=== PATIENT | female | born 1980 | race Caucasian/White ===

== ENCOUNTER 2019-03-03 13:04 | Emergency (ER) | payer SELFPAY ==
[2019-03-03] MEDS ORDERED: ONDANSETRON HCL INJ/PF 4 MG/2 ML SDV IV ONE (13:59)
[2019-03-03] MEDS ORDERED: DICYCLOMINE HCL 20 MG TABLET PO ONE (13:59)
[2019-03-03] MEDS ORDERED: KETOROLAC TROMETHAMINE INJ/PF 30 MG/1 ML SDV IV ONE (13:59)
--- NOTE | 2019-03-03 14:01 | ER Document Report ---
ED Medical Screen (RME) - General Chief Complaint: Abdominal Pain Stated Complaint: ABDOMINAL PAIN,DIARRHEA Time Seen by Provider: 03/03/19 13:40 Primary Care Provider: KINZA MASON MD [Primary Care Provider] - Follow up as needed TRAVEL OUTSIDE OF THE [place] IN LAST 30 DAYS: No - HPI Notes: 03/03/19 14:00 Patient is a 38-year-old female with a history of IBS who presents complaining of left mid abdominal pain, nausea without vomiting, diarrhea over the past couple weeks. Patient is not on any medicine for her IBS. Patient states that she has not had issues with this for years and did have a colonoscopy/endoscopy when she was younger. Denies drug allergies. She is urinating normally. No other vaginal discharge, odor, or bleeding. No surgeries to her abdomen. Denie s BURCIAGA, fever, neck pain, URI, CP, SOB, dysuria, back pain, or rash. I have treated and performed a rapid initial assessment of this patient. A comprehensive ED assessment and evaluation of the patient, analysis of test results and completion of medical decision making process will be conducted by additional ED providers. PHYSICAL EXAMINATION: GENERAL: Well-appearing, well-nourished and in no acute distress. A&Ox4. Answers questions appropriately. LUNGS: Breath sounds clear to auscultation bilaterally and equal. No wheezes rales or rhonchi. HEART: Regular rate and rhythm without murmurs, rubs, gallops. ABDOMEN: Soft, nondistended abdomen. No guarding, no rebound. Normal bowel sounds present. No CVA tenderness bilaterally. + left mid abd tenderness (cannot elicit thorough abd exam w/o bed, however). - Related Data Allergies/Adverse Reactions: No Known Allergies Allergy (Unverified 03/03/19 13:09) Physical Exam - Vital signs Vitals: Temp Pulse Resp BP Pulse Ox 98 F 57 L 18 127/85 H 99 03/03/19 13:55 03/03/19 13:55 03/03/19 13:55 03/03/19 13:55 03/03/19 13:55 Course - Vital Signs Vital signs: Temp Pulse Resp BP Pulse Ox 98 F 57 L 18 127/85 H 99 03/03/19 13:55 03/03/19 13:55 03/03/19 13:55 03/03/19 13:55 03/03/19 13:55 Doctor's Discharge - Discharge Referrals: KINZA MASON MD [Primary Care Provider] - Follow up as needed
[2019-03-03 14:54] LABS: ABSOLUTE BASOPHILS # (AUTO) 0.1 10^3/uL (0.0-0.2); ABSOLUTE EOSINOPHILS # (AUTO) 0.5 10^3/uL (0.0-0.6); ABSOLUTE LYMPHOCYTES (AUTO) 2.2 10^3/uL (0.5-4.7); ABSOLUTE MONOCYTES (AUTO) 0.6 10^3/uL (0.1-1.4); ABSOLUTE NEUT (AUTO) 3.1 10^3/uL (1.7-8.2); BASOPHILS % (AUTO) 0.9 % (0-2); EOSINOPHILS % (AUTO) 7.5 % (0-6); HEMATOCRIT 40.6 % (36.0-47.0); HEMOGLOBIN 13.7 g/dL (12.0-15.5); LYMPHOCYTES % (AUTO) 34.1 % (13-45); MEAN CORPUSCULAR HEMOGLOBIN 28.5 pg (27.0-33.4); MEAN CORPUSCULAR HGB CONC 33.7 g/dL (32.0-36.0); MEAN CORPUSCULAR VOLUME 85 fl (80-97); MONOCYTES % (AUTO) 9.4 % (3-13); PLATELET COUNT 300 10^3/uL (150-450); SEGMENTED NEUTROPHILS % (AUTO) 48.1 % (42-78); TOTAL CELLS COUNTED % (AUTO) 100 %; WHITE BLOOD COUNT 6.4 10^3/uL (4.0-10.5)
[2019-03-03 15:04] LABS: APPEARANCE,URINE CLEAR; BILIRUBIN,URINE NEGATIVE (NEGATIVE); COLOR,URINE YELLOW; GLUCOSE, URINE NEGATIVE (NEGATIVE); KETONES,URINE TRACE mg/dL (NEGATIVE); LEUKOCYTE ESTERASE,URINE TRACE (NEGATIVE); NITRITE,URINE NEGATIVE (NEGATIVE); PROTEIN,URINE NEGATIVE (NEGATIVE); URINE SPECIFIC GRAVITY 1.021; UROBILINOGEN,URINE NEGATIVE mg/dL (<2.0)
[2019-03-03 15:23] LABS: ALANINE AMINOTRANSFERASE 28 U/L (9-52); ALBUMIN 4.4 g/dL (3.5-5.0); ALKALINE PHOSPHATASE 76 U/L (38-126); ANION GAP 12 (5-19); ASPARTATE AMINO TRANSFERASE 29 U/L (14-36); BILIRUBIN,DIRECT 0.2 mg/dL (0.0-0.4); BILIRUBIN,TOTAL 0.7 mg/dL (0.2-1.3); BLOOD UREA NITROGEN 13 mg/dL (7-20); CALCIUM 9.9 mg/dL (8.4-10.2); CARBON DIOXIDE 29 mmol/L (22-30); CHLORIDE 102 mmol/L (98-107); GLUCOSE 91 mg/dL (75-110); LIPASE 117.9 U/L (23-300); POTASSIUM 4.1 mmol/L (3.6-5.0); SODIUM 142.5 mmol/L (137-145); TOTAL PROTEIN 7.3 g/dL (6.3-8.2)
[2019-03-03] MEDS ORDERED: HYDROMORPHONE HCL INJ/PF 2 MG/ML AMPULE IV ONE (17:51)
--- NOTE | 2019-03-03 17:57 | ER Document Report ---
Addendum entered and electronically signed by IRAM JEAN BAPTISTE PA-C 03/03/19 19:50: Discharge - Discharge Clinical Impression: History of irritable bowel syndrome Abdominal pain Qualifiers: Abdominal location: lower abdomen, unspecified Qualified Code(s): R10.30 - Lower abdominal pain, unspecified Condition: Good Disposition: HOME, SELF-CARE Instructions: Abdominal Pain ([facility]), Antinausea Medication ([facility]), Antispasmodics ([facility]) Additional Instructions: Please follow-up with the primary care provider given. We will also give you the name of a back sewer who might be able to see you in the future. Take the Reglan as needed for nausea. Bentyl as needed for pain. Prescriptions: Dicyclomine HCl [Bentyl 20 mg Tablet] 20 mg PO Q6HP PRN #20 tablet PRN Reason: Metoclopramide HCl [Reglan 10 mg Tablet] 1 tab PO Q6HP PRN #20 tablet PRN Reason: Forms: Return to Work Referrals: KINZA MASON MD [ACTIVE STAFF] - Follow up as needed EMY FONTENOT MD [ACTIVE STAFF] - Follow up as needed Addendum entered and electronically signed by IRAM JEAN ABPTISTE PA-C 03/03/19 19:46: Discharge - Discharge Clinical Impression: History of irritable bowel syndrome Abdominal pain Qualifiers: Abdominal location: lower abdomen, unspecified Qualified Code(s): R10.30 - Lower abdominal pain, unspecified Condition: Good Disposition: HOME, SELF-CARE Instructions: Abdominal Pain ([facility]), Antinausea Medication ([facility]), Antispasmodics ([facility]) Additional Instructions: Please follow-up with the primary care provider given. We will also give you the name of a back sewer who might be able to see you in the future. Take the Reglan as needed for nausea. Bentyl as needed for pain. Prescriptions: Dicyclomine HCl [Bentyl 20 mg Tablet] 20 mg PO Q6HP PRN #20 tablet PRN Reason: Metoclopramide HCl [Reglan 10 mg Tablet] 1 tab PO Q6HP PRN #20 tablet PRN Reason: Referrals: KINZA MASON MD [ACTIVE STAFF] - Follow up as needed EMY FONTENOT MD [ACTIVE STAFF] - Follow up as needed Original Note: ED General - General Chief Complaint: Abdominal Pain Stated Complaint: ABDOMINAL PAIN,DIARRHEA Time Seen by Provider: 03/03/19 13:40 Primary Care Provider: KINZA MASON MD [ACTIVE STAFF] - Follow up as needed Mode of Arrival: Ambulatory Information source: Patient TRAVEL OUTSIDE OF THE [place] IN LAST 30 DAYS: No - HPI Patient complains to provider of: Pelvic pain Onset: Other - Past 2 weeks Onset/Duration: Persistent Quality of pain: Sharp Severity: Severe Pain Level: 5 Associated symptoms: Nausea. denies: Chills, Diarrhea, Fever, Vomiting Exacerbated by: Movement, Walking Relieved by: Denies Similar symptoms previously: No Recently seen / treated by doctor: No Notes: Patient is a 38-year-old female with history of irritable bowel syndrome. She has had stomach and bowel issues since she was in her 20s. Was seen a back sewer in [place]. Moved back here a year ago and has not established with a primary care doctor or back sewer. Having some sharp pain in the pelvic area for the past 2 weeks. Also states whenever she eats everything goes "right through me". No fevers or shaking chills. - Related Data Allergies/Adverse Reactions: No Known Allergies Allergy (Unverified 03/03/19 13:09) Past Medical History - General Information source: Patient - Social History Smoking Status: Current Every Day Smoker Chew tobacco use (# tins/day): No Frequency of alcohol use: None Drug Abuse: None Family History: Reviewed & Not Pertinent Patient has suicidal ideation: No Patient has homicidal ideation: No Renal/ Medical History: Denies: Hx Peritoneal Dialysis Past Surgical History: Reports: Hx Breast Surgery Review of Systems - Review of Systems Notes: Constitutional: No fevers. No chills. EENT: No eye redness. No eye pain. No ear pain. No sore throat. Cardiovascular: No chest pain. No palpitations. Respiratory: No cough. No shortness of breath. No respiratory distress. Gastrointestinal: Lower abdomen/pelvic pain. Nausea but no vomiting. Some loose stools Genitourinary: Atraumatic. No lesions. No pain. No discharge. Musculoskeletal: Atraumatic. No swelling. No deformities. Skin: No rash or lesions. Lymphatic: No swollen lymph nodes. Neurologic: No headache. No syncope. Psychiatric: No suicidal or homicidal ideation. Physical Exam - Vital signs Vitals: Temp Pulse Resp BP Pulse Ox 98 F 57 L 18 127/85 H 99 03/03/19 13:55 03/03/19 13:55 03/03/19 13:55 03/03/19 13:55 03/03/19 13:55 - Notes Notes: General: Well-developed, well-nourished. In no acute distress. Non-toxic appearing. Cardiac: Well-perfused. Regular rate and rhythm. No murmurs, rubs, or gallops. Pulmonary: No respiratory distress. No cyanosis. Bilateral lung fiels are clear to auscultation. Abdominal: There is tenderness to palpation in the low mid abdomen pelvic region. The abdomen is nondistended. Nonrigid. No guarding or rebound. Bowel sounds are present all 4 quadrants. HEENT: Head is atraumatic. Conjunctivae not reddened. No tearing. PERRL. EOMI. Orbits atraumatic. No periorbital swelling or erythema. Oropharynx is without erythema, swelling, or exudates. Neck: Supple. No adenopathy. No meningismus. Dermatologic: Warm with good turgor. No rash. Atraumatic. Chest: Atraumatic. No chest wall tenderness to palpation. Musculoskeletal: Moves all extremities well. No range of motion deficits. no muscular or joint tenderness. No paraspinal muscle tenderness. no midline spinal tenderness or step-off. Genitourinary: Examination deferred Neurologic: No gross neurologic deficits. Psychiatric: Normal mood. Course - Re-evaluation Re-evalutation: 03/03/19 19:40 Labs look good. Ultrasound rules out any obvious pelvic pathology. We will write some Reglan for nausea and Bentyl for intestinal cramping and spasm pain. Will refer patient on to primary care and also give the name for GI. - Vital Signs Vital signs: Temp Pulse Resp BP Pulse Ox 98 F 57 L 18 127/85 H 99 03/03/19 13:55 03/03/19 13:55 03/03/19 13:55 03/03/19 13:55 03/03/19 13:55 - Laboratory Result Diagrams: 03/03/19 14:37 03/03/19 14:37 Laboratory results interpreted by me: 03/03/19 03/03/19 14:37 14:37 Eosinophils % 7.5 H Urine Ketones TRACE H Ur Leukocyte Esterase TRACE H Discharge - Discharge Clinical Impression: History of irritable bowel syndrome Abdominal pain Qualifiers: Abdominal location: lower abdomen, unspecified Qualified Code(s): R10.30 - Lower abdominal pain, unspecified Condition: Good Disposition: HOME, SELF-CARE Instructions: Abdominal Pain ([facility]), Antinausea Medication ([facility]), Antispasmodics ([facility]) Additional Instructions: Please follow-up with the primary care provider given. We will also give you t he name of a back sewer who might be able to see you in the future. Take the Reglan as needed for nausea. Bentyl as needed for pain. Referrals: KINZA MASON MD [ACTIVE STAFF] - Follow up as needed EMY FONTENOT MD [ACTIVE STAFF] - Follow up as needed
--- NOTE | 2019-03-03 19:30 | RADIOLOGY REPORT (SQ) ---
EXAM DESCRIPTION: U/S NON OB PEL W/DOPPLER COMPLETED DATE/TIME: 03/03/2019 7:12 pm REASON FOR STUDY: pelvic pain COMPARISON: None. TECHNIQUE: Dynamic and static grayscale images acquired of the pelvis via transvaginal approach and recorded on PACS. Additional selected color Doppler and spectral images recorded. LIMITATIONS: None. FINDINGS: UTERUS: Contour normal. No mass. ENDOMETRIAL STRIPE: No focal or generalized thickening. No masses. CERVIX: No nabothian cysts. RIGHT OVARY AND DOPPLER: Normal size. No worrisome masses. Normal arterial vascular flow without evid ence for torsion. LEFT OVARY AND DOPPLER: Normal size. No worrisome masses. Normal arterial vascular flow without evide nce for torsion. FREE FLUID: None noted. OTHER: No other significant finding. MEASUREMENTS: UTERUS: 7.3 x 5.1 x 2.9 cm ENDOMETRIAL STRIPE: 6 mm RIGHT OVARY: 2.8 x 2.7 x 2.2 cm LEFT OVARY: 2.1 x 2.0 x 2.0 cm IMPRESSION: Age-appropriate exam. TECHNICAL DOCUMENTATION: JOB ID: [id number] [place]-72 2010 [employer]- All Rights Reserved Rev-02/08 Reading location - IP/workstation name: [employer]
[2019-03-03 20:14] VITALS: BP 134/88
== END 2019-03-03 20:14 | disposition home or self-care (01) ==
LOC: ER 13:04
DX: R10.30 Lower abdominal pain, unspecified (principal); K58.9 Irritable bowel syndrome, unspecified; R10.9 Unspecified abdominal pain
CPT/HCPCS: 99284; 96374; 96375; 36415; 83690; 85025; 81025; 80053; 81001; 76856; 93976; J3490; J1885; J1170; J2405